=== PATIENT | female | born 1965 | race Two or more races ===

== ENCOUNTER 2023-12-11 16:10 | Emergency (ER) | payer MEDICAID, OTHER ==
[~2023-12-11] VITALS: Ht 167.6 cm; Wt 111.1 kg
[2023-12-11] MEDS: MORPHINE SULFATE 4 MG/ML SYR/VIAL IV ONE (19:22)
[2023-12-11] MEDS: ONDANSETRON HCL 4 MG/2 ML VIAL IV ONE ×2 (19:22→22:14)
[2023-12-11] MEDS: HYDROmorphone HCL 2 MG/ML VL/or syr IV ONE (22:15)
[2023-12-12] MEDS: HYDROmorphone HCL 2 MG/ML VL/or syr IV ONE (00:50)
[2023-12-12 01:58] VITALS: BP 152/73; PULSE 104; RESP 16; TEMP 98; O2SAT 99
== END 2023-12-12 02:31 | disposition short-term general hospital (02) ==
LOC: EDBD 16:10 → ER 16:10
DX: S72.401A Unspecified fracture of lower end of right femur, initial encounter for closed fracture (principal); M19.90 Unspecified osteoarthritis, unspecified site; F12.10 Cannabis abuse, uncomplicated; W01.0XXA Fall on same level from slipping, tripping and stumbling without subsequent striking against object, initial encounter; Y93.89 Activity, other specified; Y92.89 Other specified places as the place of occurrence of the external cause; Y99.8 Other external cause status
CPT/HCPCS: 71045; 72170; 73552; 73562; 73590; 93971; 96374; 96375; 96376; 99285; J1170; J2270; J2405